=== PATIENT | female | born 1960 | race Two or more races ===

== ENCOUNTER → 2016-09-15 | Outpatient (CLI) | payer OTHER ==
[2016-09-15 14:01] LABS: ALBUMIN/GLOBULIN RATIO 1.21 (1.00-1.93); ALKALINE PHOSPHATASE 108 U/L (45-117); ALT/SGPT 31 U/L (12-78); AST/SGOT 18 U/L (15-37); BILIRUBIN,DIRECT < 0.1 MG/DL (0.0-0.2); BILIRUBIN,TOTAL 0.3 MG/DL (0.2-1.0); GAMMA GLUTAMYLTRANSPEPTIDASE 108 U/L (5-55); PERCENT SATURATION 25.3 % (13.2-37.4); TOTAL IRON BINDING CAPACITY 269 UG/DL (250-450); TOTAL PROTEIN 7.3 GM/DL (6.4-8.2)
== END ==
LOC: M LAB 12:41
PROVIDERS: ATTEND Internal Medicine Gastroenterology
DX: R74.8 Abnormal levels of other serum enzymes (principal)

== ENCOUNTER → 2016-09-21 | Outpatient (REF) | payer OTHER | LOC: M SMT 17:01 | PROVIDERS: ATTEND Nurse Practitioner Women's Health | DX: R31.29 Other microscopic hematuria (principal) ==

== ENCOUNTER → 2016-10-01 | Outpatient (REF) | payer OTHER | LOC: M SMT 16:52 | PROVIDERS: ATTEND Urology | DX: R31.29 Other microscopic hematuria (principal) ==

== ENCOUNTER → 2018-08-02 | Outpatient (REF) | payer OTHER | LOC: M LAB REF 10:57 | PROVIDERS: ATTEND Internal Medicine Endocrinology, Diabetes & Metabolism | DX: E04.1 Nontoxic single thyroid nodule (principal) ==

== ENCOUNTER 2018-09-05 06:08 | Day surgery (SDC) | payer OTHER ==
[~2018-09-05] VITALS: Ht 160 cm; Wt 61.1 kg
[~2018-09-05 06:08] MED LIST: B COTAB3 PO; FISH1000 PO; LIDOCAINE 1% MDV 20ML VIAL SQ PRN; LOSA25TA14 PO; LR 1,000 ML IV ONE; MAGN400C2 PO; MULTCAP PO; OMEP10CASR PO; PROBCAP14 PO; SING10TA32 PO; SYMB16INH INH; VITA-198 PO; VITAD1000T PO; [UNRECOGNIZED DRUG - OTHER] PO
[2018-09-05] MEDS ORDERED: BUPIVACAINE/EPIN 0.25% 30 ML VIAL As Ordered ONE (06:39)
[2018-09-05] MEDS ORDERED: dexameTHASONE 4 MG/ML 1ML VIAL (J1100) As Ordered ONE (07:48)
[2018-09-05] MEDS ORDERED: METOCLOPRAMIDE INJ 10MG/2ML VIAL (J2765) As Ordered ONE (07:48)
[2018-09-05] MEDS ORDERED: fentaNYL 250 MCG/5 ML INJECTION (J3010) As Ordered ONE (07:48)
[2018-09-05] MEDS ORDERED: PROPOFOL 200 MG/20 ML VIAL As Ordered ONE (07:48)
[2018-09-05] MEDS ORDERED: KETOROLAC 60 MG/2 ML VIAL (J1885) As Ordered ONE (07:48)
[2018-09-05] MEDS ORDERED: ONDANSETRON 4MG/2ML VIAL (J2405) As Ordered ONE (07:48)
[2018-09-05] MEDS ORDERED: SUGAMMADEX SODIUM 500 MG/5 ML VIAL (BRIDION) As Ordered ONE (07:48)
[2018-09-05] MEDS ORDERED: LIDOCAINE 2% INJ 100 MG/5 ML SDV (FOR ANES.) As Ordered ONE (07:48)
[2018-09-05] MEDS ORDERED: ROCURONIUM BROMIDE 50 MG/5 ML VIAL As Ordered ONE (07:48)
[2018-09-05] MEDS ORDERED: MIDAZOLAM INJ 2 MG/2 ML VIAL (J2250) As Ordered ONE (07:48)
[2018-09-05] MEDS ORDERED: fentaNYL 100 MCG/2 ML INJECTION (J3010) As Ordered ONE (08:32)
[2018-09-05] MEDS ORDERED: PERCOCET 5MG/325MG TAB As Ordered ONE (08:32)
[2018-09-05] MEDS: PERCOCET 5MG/325MG TAB PO PRN ×2 (08:35→09:05)
[2018-09-05] MEDS: fentaNYL 100 MCG/2 ML INJECTION (J3010) IV PRN ×4 (08:37→08:52)
[2018-09-05] MEDS ORDERED: NORCO, ANEXSIA 5/325MG TABLET (HYDROcodone/ACETAMINOPHEN) PO PRN (08:45)
[2018-09-05] MEDS ORDERED: ONDANSETRON 4MG/2ML VIAL (J2405) IV PRN (08:45)
[2018-09-05] MEDS ORDERED: LR 1,000 ML IV SCH (08:45)
[2018-09-05] MEDS ORDERED: HYDROMORPHONE HCL 0.5 MG/ 0.5 ML SYRINGE (J1170 PER 1) IV PRN (08:45)
--- NOTE | 2018-09-05 10:41 | RO ---
DATE OF PROCEDURE: 09/05/2018 PREOPERATIVE DIAGNOSIS: Biliary dyskinesia. POSTOPERATIVE DIAGNOSIS: Biliary dyskinesia. PROCEDURE: Laparoscopic cholecystectomy. SURGEON: Dr. Verma CLAMP FORKLIFT OPERATOR: None. ANESTHESIA: General. ESTIMATED BLOOD LOSS: 5 COMPLICATIONS: None. INDICATIONS FOR PROCEDURE: The patient 57-year-old female who presents with right upper quadrant abdominal pain found have biliary dyskinesia. Recommendation is to proceed laparoscopic possible open cholecystectomy. Risks, benefits of the procedure not limited but including bleeding, infection, hernia formation, damage to surrounding structure need for further surgery discussed in detail with the patient informed consent was obtained procedure was planned. PROCEDURE: The patient brought back to operating room three. After sufficient sedation the abdomen sterilely prepped and draped. Next time-out was done to confirm proper patient proper procedure. Following that an 11 mm incision made left upper quadrant just to the left of midline. Veress needle was inserted in the abdomen was insufflated 15 mmHg. Next a 5 mm supraumbilical midline incision made and a 5 mm Optiview port was used to gain access the abdomen. Once abdomen centered Veress needle site was examined. No signs of any injury. Veress needle was removed. Two 5 meters ports placed right upper quadrant fundus of gallbladder was elevated up towards right shoulder cystic duct and cystic artery were carefully dissected free. Once they are both clearly identified they are both doubly clipped and cut gallbladder was then dissected free from gallbladder fossa electrocautery and then brought out through the subxiphoid port site in a 10 mm EndoCatch bag. The abdomen was examined last time to control hemostasis. Electrocautery was used along liver bed. Once this was completed abdomen was desufflated. Skin incisions closed with 4-0 Vicryl subcuticular sutures. Abdomen cleaned and dried. Steri-Strips 4x4 and tape were applied thus ending procedure.
[2018-09-05 11:40] VITALS: BP 147/75
== END 2018-09-05 11:55 | disposition home or self-care (01) ==
LOC: M SDC 06:08
PROVIDERS: ATTEND Surgery
DX: K82.8 Other specified diseases of gallbladder (principal); E04.1 Nontoxic single thyroid nodule; I10 Essential (primary) hypertension; K21.9 Gastro-esophageal reflux disease without esophagitis; J45.909 Unspecified asthma, uncomplicated; Z79.51 Long term (current) use of inhaled steroids; Z79.899 Other long term (current) drug therapy; K44.9 Diaphragmatic hernia without obstruction or gangrene
CPT/HCPCS: 47562; 88304; J1100; J1885; J2250; J2405; J2765; J3010

== ENCOUNTER → 2019-01-09 | Outpatient (CLI) | payer OTHER ==
[~2019-01-09] MED LIST changes: +CHOL100029 PO; -LIDOCAINE 1% MDV 20ML VIAL SQ PRN; +LINZ290C PO; -LR 1,000 ML IV ONE; -VITAD1000T PO
== END ==
LOC: M IRPRO 08:50
PROVIDERS: ATTEND Internal Medicine Gastroenterology
DX: R74.8 Abnormal levels of other serum enzymes (principal); Z53.9 Procedure and treatment not carried out, unspecified reason

== ENCOUNTER → 2019-01-11 | Outpatient (CLI) | payer OTHER ==
[~2019-01-11] MED LIST changes: +LIDOCAINE 1% MDV 20ML VIAL As Ordered ONE
[2019-01-11 12:50] VITALS: BP 148/81
--- NOTE | 2019-01-11 17:27 | REP ---
ULTRASOUND-GUIDED LIVER BIOPSY The procedure was performed under the direct supervision of Dr. Lugo. The risks and benefits of the procedure were explained to the patient and informed consent was obtained. The left lobe of the liver was localized using ultrasound guidance. The skin was prepped and draped in a sterile fashion. 1% lidocaine was used as a local anesthetic. Using ultrasound guidance a 19/20 gauge coaxial needle biopsy system was inserted and advanced into the liver. Five core biopsy samples were obtained and sent to lab. The patient tolerated the procedure well and there were no immediate complications. After the appropriate amount of monitored convalescence the patient was discharged from the department. Electronically Signed by MIMI Gregg 01/11/2019 04:24 P Electronically Signed by Maico Lugo MD 01/11/2019 05:19 P
== END ==
LOC: M IRPRO 09:56
PROVIDERS: ATTEND Radiology Diagnostic Radiology
DX: R74.8 Abnormal levels of other serum enzymes (principal)

== ENCOUNTER → 2019-02-02 | Outpatient (CLI) | payer OTHER ==
[~2019-02-02] MED LIST changes: -LIDOCAINE 1% MDV 20ML VIAL As Ordered ONE
[2019-02-02 15:16] LABS: HEMOGLOBIN A1c 5.9 %
[2019-02-02 15:27] LABS: RHEUMATOID FACTOR QUANT < 10.0 IU/ML (<15.0); TOTAL PROTEIN 7.5 GM/DL (6.4-8.2)
[2019-02-02 15:32] LABS: FOLATE > 24.0 NG/ML; VITAMIN B12 LEVEL 618 PG/ML
[2019-02-03 13:07] LABS: ALBUMIN 4.49 GM/DL (3.29-5.55); ALBUMIN % 59.8 % (55.8-66.1); ALPHA-1-GLOBULIN % 3.7 % (2.9-4.9); ALPHA-1-GLOBULINS 0.28 GM/DL (0.17-0.41); ALPHA-2-GLOBULINS 0.62 GM/DL (0.42-0.99); ALPHA-2-GLOBULINS % 8.2 % (7.1-11.8); BETA-1-GLOBULINS 0.44 GM/DL (0.28-0.60); BETA-1-GLOBULINS % 5.9 % (4.7-7.2); BETA-2-GLOBULINS 0.42 GM/DL (0.19-0.55); BETA-2-GLOBULINS % 5.6 % (3.2-6.5); GAMMA GLOBULIN % 16.8 % (11.1-18.8); GAMMA GLOBULINS 1.26 GM/DL (0.65-1.58)
[2019-02-08 00:06] LABS: ANCA-ATYPICAL <1:20 titer (Neg:<1:20); ANTI DS-DNA AB Negative (Negative); ANTINUCLEAR ANTIBODIES DIRECT Negative (Negative); CERULOPLASMIN 24.1 mg/dL (19.0-39.0); COPPER PLASMA 96 ug/dL (72-166); CYTOPLASMIC NEUTROP AB ANCA-C <1:20 titer (Neg:<1:20); LEAD BLOOD ADULT 1 ug/dL (0-4); PERINUCLEAR AB ANCA-P <1:20 titer (Neg:<1:20); SJOGREN'S ANTI SS-A <0.2 AI (0.0-0.9); SJOGREN'S ANTI SS-B <0.2 AI (0.0-0.9); VITAMIN B1 LEVEL WHOLE BLOOD 146.3 nmol/L (66.5-200.0); VITAMIN B6,PYRIDOXAL PHOSPHATE 63.9 ug/L (2.0-32.8); VITAMIN E(GAMMA TOCOPHEROL) 1.4 mg/L (0.5-5.5)
== END ==
LOC: M LAB 12:52
PROVIDERS: ATTEND Psychiatry & Neurology Neurology
DX: G62.9 Polyneuropathy, unspecified (principal)

== ENCOUNTER 2019-02-09 11:15 | Day surgery (SDC) | payer OTHER ==
[~2019-02-09] VITALS: Ht 160 cm; Wt 57.6 kg
[~2019-02-09 11:15] MED LIST changes: +NS 1,000 ML IV SCH
[2019-02-09] MEDS ORDERED: PROPOFOL 200 MG/20 ML VIAL As Ordered ONE ×2 (11:51→13:18)
[2019-02-09] MEDS ORDERED: LIDOCAINE 2% INJ 100 MG/5 ML SDV (FOR ANES.) As Ordered ONE (11:51)
[2019-02-09] MEDS ORDERED: fentaNYL 100 MCG/2 ML INJECTION (J3010) As Ordered ONE (11:54)
--- NOTE | 2019-02-09 13:27 | ROOR ---
Patient Name: Jany Farfan Procedure Date: 02/09/2019 12:42 PM Date of : 1960 Age: 58 Room: [facility] Gender: Female Note Status: Finalized Procedure: Upper GI endoscopy Indications: Abdominal pain, Borderline celiac serologies Providers: Raymundo GARCIA MD Referring MD: CUCO SIERRA MD Requesting Provider: Medicines: Monitored Anesthesia Care Complications: No immediate complications. Procedure: Pre-Anesthesia Assessment: - The heart rate, respiratory rate, oxygen saturations, blood pressure, adequacy of pulmonary ventilation, and response to care were monitored throughout the procedure. The Endoscope was introduced through the mouth, and advanced to the third part of duodenum. The upper GI endoscopy was accomplished without difficulty. The patient tolerated the procedure well. Findings: The examined esophagus was normal. The entire examined stomach was normal. The examined duodenum was normal. Biopsies for histology were taken with a cold forceps for evaluation of celiac disease. Impression: - Normal esophagus. - Normal stomach. - Normal examined duodenum. Biopsied. Recommendation: - Await pathology results. - I will mail you additional lab work for iron studies evaluations. - Return to my office in 1 month. Raymundo Garcia MD Raymundo GARCIA MD 02/09/2019 1:27:16 PM Electronically signed by Raymundo GARCIA MD Number of Addenda: 0 Note Initiated On: 02/09/2019 12:42 PM Estimated Blood Loss: Estimated blood loss: none.
--- NOTE | 2019-02-09 13:30 | ROOR ---
Patient Name: Jany Farfan Procedure Date: 02/09/2019 12:42 PM Date of : 1960 Age: 58 Room: [facility] Gender: Female Note Status: Finalized Procedure: Colonoscopy Indications: Generalized abdominal pain Providers: Raymundo GARCIA MD Referring MD: CUCO SIERRA MD Requesting Provider: Medicines: Monitored Anesthesia Care Complications: No immediate complications. Procedure: Pre-Anesthesia Assessment: - The heart rate, respiratory rate, oxygen saturations, blood pressure, adequacy of pulmonary ventilation, and response to care were monitored throughout the procedure. The Colonoscope was introduced through the anus and advanced to 5 cm into the ileum. The colonoscopy was performed without difficulty. Findings: The perianal and digital rectal examinations were normal. A 5 mm polyp was found in the ascending colon. The polyp was sessile. The polyp was removed with a cold snare. Resection and retrieval were complete. The colon (entire examined portion) was redundant. Small Internal Hemorrhoids. The exam was otherwise without abnormality on direct and retroflexion views. Impression: - One 5 mm polyp in the ascending colon, removed with a cold snare. Resected and retrieved. - Somewhat redundant colon. - Small Internal Hemorrhoids. - The examination of the colon and terminal ileum was otherwise normal on direct and retroflexion views. Recommendation: - Return to my office in 1 month. - Await pathology results. Raymundo Garcia MD Raymundo GARCIA MD 02/09/2019 1:30:06 PM Electronically signed by Raymundo GARCIA MD Number of Addenda: 0 Note Initiated On: 02/09/2019 12:42 PM Estimated Blood Loss: Estimated blood loss: none.
[2019-02-09 13:45] VITALS: BP 143/65
== END 2019-02-09 14:25 | disposition home or self-care (01) ==
LOC: M OPP 11:15
PROVIDERS: ATTEND Internal Medicine Gastroenterology
DX: D12.2 Benign neoplasm of ascending colon (principal); R10.84 Generalized abdominal pain; Q43.8 Other specified congenital malformations of intestine; R76.8 Other specified abnormal immunological findings in serum; Z79.899 Other long term (current) drug therapy
CPT/HCPCS: 43239; 45385; 88305; J3010

== ENCOUNTER → 2019-02-27 | Outpatient (CLI) | payer OTHER ==
[~2019-02-27] MED LIST changes: -NS 1,000 ML IV SCH
[2019-02-27 13:17] LABS: PERCENT SATURATION 37.6 % (13.2-45.0)
== END ==
LOC: M LAB 11:39
PROVIDERS: ATTEND Internal Medicine Gastroenterology
DX: R94.5 Abnormal results of liver function studies (principal)

== ENCOUNTER → 2022-10-23 | Outpatient (CLI) | payer BC ==
[~2022-10-23] MED LIST changes: +LOSA25TA13 PO; -LOSA25TA14 PO; +MONT-5 PO; -SING10TA32 PO
== END ==
LOC: M PLAIMG 12:53
PROVIDERS: ATTEND Psychiatry & Neurology Neurology
DX: M51.26 Other intervertebral disc displacement, lumbar region (principal); M79.606 Pain in leg, unspecified; R20.2 Paresthesia of skin

== ENCOUNTER → 2022-12-07 | Outpatient (CLI) | payer BC | LOC: M LAB 09:26 | PROVIDERS: ATTEND Psychiatry & Neurology Neurology | DX: R53.1 Weakness (principal); R20.2 Paresthesia of skin ==

== ENCOUNTER → 2023-03-30 | Outpatient (CLI) | payer BC | LOC: M PAIN 08:00 | PROVIDERS: ATTEND Nurse Practitioner Family | DX: M79.18 Myalgia, other site (principal); G89.29 Other chronic pain; I10 Essential (primary) hypertension; E06.3 Autoimmune thyroiditis; Z79.890 Hormone replacement therapy; Z79.899 Other long term (current) drug therapy ==

== ENCOUNTER → 2023-04-21 | Outpatient (CLI) | payer BC ==
[~2023-04-21] MED LIST changes: +TRIAMCINOLONE ACETONIDE SUSP 40MG/ML 1ML VIAL As Ordered ONE
== END ==
LOC: M PAIN 13:00
PROVIDERS: ATTEND Anesthesiology
DX: M79.18 Myalgia, other site (principal); I10 Essential (primary) hypertension; Z79.890 Hormone replacement therapy; Z79.899 Other long term (current) drug therapy
CPT/HCPCS: 20552; J0665; J3301

== ENCOUNTER 2023-05-18 10:55 | Day surgery (SDC) | payer BC ==
[~2023-05-18] VITALS: Ht 165.1 cm; Wt 57.6 kg
[~2023-05-18 10:55] MED LIST changes: +GABA-1171 PO; +LEVO50TA5 PO; +LOSA50TA28 PO; +MONT10TA97 PO; +NS 1,000 ML IV ONE; +PROT1TAB2 PO; -TRIAMCINOLONE ACETONIDE SUSP 40MG/ML 1ML VIAL As Ordered ONE
[2023-05-18] MEDS ORDERED: propofoL 200 MG/20 ML VIAL As Ordered ONE (12:04)
[2023-05-18 13:28] VITALS: BP 144/65; TEMP 97.5; O2SAT 100
== END 2023-05-18 13:22 | disposition home or self-care (01) ==
LOC: M OPP 10:55
PROVIDERS: ATTEND Internal Medicine Gastroenterology
DX: R11.0 Nausea (principal); R10.13 Epigastric pain; Z87.19 Personal history of other diseases of the digestive system; Z80.0 Family history of malignant neoplasm of digestive organs

== ENCOUNTER → 2023-06-10 | Outpatient (CLI) | payer BC ==
[~2023-06-10] MED LIST changes: +ISOVUE-370 76% 100ML VIAL As Ordered ONE; -NS 1,000 ML IV ONE
== END ==
LOC: M RAD 15:23
PROVIDERS: ATTEND Psychiatry & Neurology Neurology
DX: M89.8X8 Other specified disorders of bone, other site (principal)
CPT/HCPCS: 70481; Q9967

== ENCOUNTER → 2023-07-12 | Outpatient (CLI) | payer BC ==
[~2023-07-12] MED LIST changes: -ISOVUE-370 76% 100ML VIAL As Ordered ONE
== END ==
LOC: M PAIN 11:30
PROVIDERS: ATTEND Nurse Practitioner Family
DX: M79.18 Myalgia, other site (principal); M54.14 Radiculopathy, thoracic region; G89.29 Other chronic pain; I10 Essential (primary) hypertension; E06.3 Autoimmune thyroiditis; Z79.890 Hormone replacement therapy; Z79.899 Other long term (current) drug therapy

== ENCOUNTER → 2023-08-03 | Outpatient (CLI) | payer BC ==
[~2023-08-03] MED LIST changes: +LIDOCAINE 1% MDV 20ML VIAL As Ordered ONE
[2023-08-03 10:11] VITALS: TEMP 98
[2023-08-03 10:50] LABS: INR 0.9; PROTHROMBIN TIME 11.9 SECONDS (12.5-14.5)
[2023-08-03 12:50] VITALS: BP 138/65; O2SAT 100
== END ==
LOC: M IRPRO 10:05
PROVIDERS: ATTEND Physician Assistant Medical
DX: K83.1 Obstruction of bile duct (principal); R79.89 Other specified abnormal findings of blood chemistry

== ENCOUNTER → 2023-08-10 | Outpatient (CLI) | payer BC ==
[~2023-08-10] MED LIST changes: -LIDOCAINE 1% MDV 20ML VIAL As Ordered ONE
== END ==
LOC: M PAIN 10:15
PROVIDERS: ATTEND Nurse Practitioner Family
DX: M51.14 Intervertebral disc disorders with radiculopathy, thoracic region (principal); G89.29 Other chronic pain; I10 Essential (primary) hypertension; J45.909 Unspecified asthma, uncomplicated; E06.3 Autoimmune thyroiditis; Z79.890 Hormone replacement therapy; Z79.899 Other long term (current) drug therapy

== ENCOUNTER → 2023-08-17 | Outpatient (CLI) | payer BC | LOC: M LAB 12:36 | PROVIDERS: ATTEND Psychiatry & Neurology Neurology | DX: G62.9 Polyneuropathy, unspecified (principal) ==

== ENCOUNTER → 2023-11-18 | Outpatient (CLI) | payer BC | LOC: M PAIN 08:30 | PROVIDERS: ATTEND Anesthesiology | DX: M51.14 Intervertebral disc disorders with radiculopathy, thoracic region (principal); G89.29 Other chronic pain; I10 Essential (primary) hypertension; J45.909 Unspecified asthma, uncomplicated; E06.3 Autoimmune thyroiditis; Z79.890 Hormone replacement therapy; Z79.899 Other long term (current) drug therapy | CPT/HCPCS: 76000; G0463 ==

== ENCOUNTER → 2023-12-31 | Outpatient (CLI) | payer BC | LOC: M PAIN 08:15 | PROVIDERS: ATTEND Anesthesiology | DX: M54.14 Radiculopathy, thoracic region (principal); I10 Essential (primary) hypertension; J45.909 Unspecified asthma, uncomplicated; G89.29 Other chronic pain; E06.3 Autoimmune thyroiditis; M79.7 Fibromyalgia; Z79.890 Hormone replacement therapy; Z79.899 Other long term (current) drug therapy ==

== ENCOUNTER 2024-04-21 10:30 | Outpatient (RCR) | payer BC | END 2024-04-28 | LOC: M PT 10:30 | PROVIDERS: ATTEND Family Medicine | DX: I89.0 Lymphedema, not elsewhere classified (principal) ==

== ENCOUNTER 2024-06-29 06:58 | Day surgery (SDC) | payer BC ==
[~2024-06-29] VITALS: Ht 160 cm; Wt 62.3 kg
[~2024-06-29 06:58] MED LIST changes: +AMIT10TA7 PO; +CALT1TAB PO; +GABA-284 PO; +SAVE50TA PO
[2024-06-29] MEDS ORDERED: METO1TAB32 PO (07:48)
[2024-06-29] MEDS ORDERED: LIDOCAINE 2% 100MG/5ML SDV (FOR ANES.) As Ordered ONE (08:03)
[2024-06-29] MEDS ORDERED: GLYCOPYRROLATE INJ 0.2 MG/ML 2 ML VIAL As Ordered ONE (08:03)
[2024-06-29] MEDS ORDERED: propofoL 200 MG/20 ML VIAL As Ordered ONE (08:03)
[2024-06-29 08:27] VITALS: TEMP 96.9
[2024-06-29 09:01] VITALS: BP 160/79; O2SAT 74
== END 2024-06-29 09:01 | disposition home or self-care (01) ==
LOC: M OPP 06:58
PROVIDERS: ATTEND Internal Medicine Gastroenterology
DX: Z12.11 Encounter for screening for malignant neoplasm of colon (principal); K64.8 Other hemorrhoids; Q43.8 Other specified congenital malformations of intestine; Z86.0100 Personal history of colon polyps, unspecified; Z79.51 Long term (current) use of inhaled steroids; J45.909 Unspecified asthma, uncomplicated
CPT/HCPCS: 45378; J1596

== ENCOUNTER → 2024-09-29 | Outpatient (CLI) | payer BC ==
[~2024-09-29] MED LIST changes: +AMIT10TA11 PO; -AMIT10TA7 PO; +METO1TAB32 PO
== END ==
LOC: M ONCR 08:23
PROVIDERS: ATTEND General Practice
DX: E05.00 Thyrotoxicosis with diffuse goiter without thyrotoxic crisis or storm (principal)
CPT/HCPCS: 77300; 79005; A9517

== ENCOUNTER → 2024-09-29 | Outpatient (CLI) | payer BC | LOC: M RAD 07:33 | PROVIDERS: ATTEND General Practice | DX: E05.00 Thyrotoxicosis with diffuse goiter without thyrotoxic crisis or storm (principal) | CPT/HCPCS: 79005; A9517 ==

== ENCOUNTER 2024-10-20 08:30 | Outpatient (RCR) | payer BC | END 2024-10-29 | LOC: M PT 08:30 | PROVIDERS: ATTEND Family Medicine | DX: I89.0 Lymphedema, not elsewhere classified (principal) ==